=== PATIENT | female | born 1995 | race Caucasian/White ===

== ENCOUNTER 2018-08-24 09:02 | Emergency (ER) | payer MEDICAID ==
[~2018-08-24] VITALS: Ht 157.5 cm; Wt 51.3 kg
[2018-08-24 09:18] VITALS: BP_SYST 118
--- NOTE | 2018-08-24 09:30 | NUR ---
Patient to ER bed 03 to gown for evaluation. Side rails up.
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
--- NOTE | 2018-08-24 10:00 | NUR ---
Dr Sumner at bedside examining patient
[2018-08-24 10:30] VITALS: BP_SYST 116
--- NOTE | 2018-08-24 10:30 | NUR ---
Patient and pt's mother given written and verbal discharge instructions and verbalizes understanding. ER MD discussed with patient and pt's mother the results and treatment provided. Patient in stable condition. ID arm band removed. Rx of Motrin given. Patient and pt's mother educated on pain management and to follow up with PMD. Pain Scale 3/10 tolerable for pt Opportunity for questions provided and answered. Medication side effect fact sheet provided.
== END 2018-08-24 10:30 | disposition home or self-care (01) ==
LOC: SED 09:02
DX: S46.912A Strain of unspecified muscle, fascia and tendon at shoulder and upper arm level, left arm, initial encounter (principal); V89.2XXA Person injured in unspecified motor-vehicle accident, traffic, initial encounter; Y93.89 Activity, other specified; Y92.89 Other specified places as the place of occurrence of the external cause; Y99.8 Other external cause status
CPT/HCPCS: 81025; 99282